=== PATIENT | male | born 1980 | race Caucasian/White ===

== ENCOUNTER 2020-09-23 20:40 | Emergency (ER) | payer OTHER ==
[~2020-09-23] VITALS: Ht 147.3 cm; Wt 81.7 kg
[2020-09-23] MEDS ORDERED: SPIRIVA INH (21:21)
[2020-09-23] MEDS ORDERED: PROAIR HFA8.5 GM INH (21:21)
[2020-09-23] MEDS ORDERED: SYMBICORT160 MCG/4. INH (21:21)
[2020-09-23] MEDS ORDERED: IPRATROPIU0.2 MG/1 M INH (21:22)
[2020-09-23] MEDS ORDERED: XOLAIR150 MG/1 M SUBQ (21:22)
[2020-09-23] MEDS ORDERED: HYDROCORTISONE10 MG PO (21:23)
[2020-09-23 21:24] LABS: ABSOLUTE NEUTROPHILS 8.7 thou/uL (1.4-8.2); BASOPHILS 0.3 % (0.0-2.0); HEMATOCRIT 51.2 % (42.0-52.0); HEMOGLOBIN 17.3 gm/dL (14.0-18.0); LYMPHOCYTES 7.1 % (24.0-44.0); MCH 30.1 pg (26.0-34.0); MCHC 33.8 g/dL (28.0-37.0); MCV 88.9 fL (80.0-100.0); MONOCYTES 5.4 % (1.0-8.0); PLATELET COUNT 326 thou/uL (150-400); POLYS 86.2 % (36.0-66.0); RBC 5.76 mil/uL (4.50-6.00); RDW 14.7 % (10.5-14.5); WBC 10.1 thou/uL (4.0-11.0)
[2020-09-23] MEDS ORDERED: LEVO-T50 MCG PO (21:24)
[2020-09-23] MEDS ORDERED: CORTEF5 MG PO (21:24)
[2020-09-23] MEDS ORDERED: NORDITROPI5 MG/1.52 SUBQ (21:24)
[2020-09-23] MEDS ORDERED: DHEA 10 MG TAB1 EACH PO (21:25)
[2020-09-23] MEDS ORDERED: TESTONE CI200 MG/1 M SUBQ (21:25)
[2020-09-23] MEDS ORDERED: OMEPRAZOLE 20 M20 M1 PO (21:26)
[2020-09-23] MEDS ORDERED: ALLEGRA ALLERG180 MG PO (21:26)
[2020-09-23] MEDS ORDERED: PEPCID20 MG PO (21:26)
[2020-09-23] MEDS ORDERED: MELOXICAM15 MG PO (21:26)
[2020-09-23] MEDS ORDERED: LEXAPRO20 MG PO (21:26)
[2020-09-23] MEDS ORDERED: CALCIUM500 MG PO (21:27)
[2020-09-23] MEDS ORDERED: MAGNESIUM250 M1 PO (21:27)
[2020-09-23] MEDS ORDERED: VITAMIN D31250 MC1 PO (21:27)
[2020-09-23] MEDS ORDERED: FLAX OIL1000 MG PO (21:28)
[2020-09-23] MEDS ORDERED: TURMERIC COMPL1 EACH PO (21:28)
[2020-09-23 21:31] LABS: CALCIUM 9.8 mg/dL (8.5-10.1); CREATININE 1.2 mg/dL (0.7-1.3); POTASSIUM 5.1 mmol/L (3.5-5.1)
[2020-09-23 21:50] LABS: BE(vivo) 0.7 mmol/L (-2 to +3); HCO3 16.7 mmol/L (22.0-26.0); PCO2 VENOUS 15.2 mmHg (41.0-51.0); PO2 VENOUS 43.5 mmHg (35.0-45.0)
[2020-09-23 23:34] LABS: URINE BILIRUBIN NEGATIVE (Negative); URINE BLOOD NEGATIVE (Negative); URINE CLARITY CLEAR; URINE COLOR YELLOW; URINE GLUCOSE-RANDOM* NEGATIVE (Negative); URINE KETONES NEGATIVE (Negative); URINE LEUKOCYTES-REFLEX TRACE (Negative); URINE NITRITE-REFLEX NEGATIVE (Negative); URINE PROTEIN (DIPSTICK) NEGATIVE (Negative); URINE SPECIFIC GRAVITY 1.015 (1.005-1.035); URINE UROBILINOGEN 0.2 E.U./dl (0.2-1.0)
[2020-09-23 23:43] LABS: AMP/METHAMP Negative (Negative); BARBITURATES Negative (Negative); BENZODIAZEPINES Negative (Negative); COCAINE Negative (Negative); METHADONE Negative (Negative); OPIATES Negative (Negative); PCP Negative (Negative)
[2020-09-24 01:20] VITALS: BP 106/58
--- NOTE | 2020-09-24 06:52 | EKG ---
[address] [place] [address] ELECTROCARDIOGRAM REPORT Name: JODYJEREMIE Room #: [facility]ya[facility] [id number] Admission: 09/23/20 Attend Phys: Discharge: 09/24/20 Date of : 78 Report #: [id number] [facility] ED Test Date: 2020-09-23 Test Time: 23:24:56 Pat Name: JEREMIE VERA Department: Room: Gender: M [employer]: [email or web address] : 1980 Requested By: Raquel Baker Order Number: [id number] MD: Brent Troncoso Measurements Intervals [place] Rate: 133 P: 47 NC: 126 QRS: 45 QRSD: 65 T: 44 QT: 274 QTc: 408 Interpretive Statements Sinus tachycardia Multiple ventricular premature complexes Aberrant complex No previous ECG available for comparison Electronically Signed On 09-24-2020 6:52:26 CDT by Brent Troncoso [email or web address] <ELECTRONICALLY SIGNED> By: Brent Troncoso MD, [facility] 09/24/20 [id number] Brent Troncoso MD, FACC /EPI
== END 2020-09-24 01:20 | disposition home or self-care (01) ==
LOC: EDSEX 20:40 → ER 20:40
PROVIDERS: Emergency Medicine
DX: R11.2 Nausea with vomiting, unspecified (principal); R00.0 Tachycardia, unspecified; E27.1 Primary adrenocortical insufficiency; R19.7 Diarrhea, unspecified; J45.909 Unspecified asthma, uncomplicated; Z90.49 Acquired absence of other specified parts of digestive tract; Z79.899 Other long term (current) drug therapy; Z88.1 Allergy status to other antibiotic agents